=== PATIENT | female | born 1935 | race Caucasian/White ===

== ENCOUNTER 2021-11-16 10:26 | Inpatient (IN) | payer MEDICARE, OTHER ==
[2021-11-16] MEDS ORDERED: Fentanyl 100 MCG/2 ML VIAL ONE ×2 (12:23→14:37)
[2021-11-16 12:47] LABS: #Lymphocytes 0.5 thou/uL (1.20-3.40); #Monocytes 0.4 thou/uL (0.11-0.59); #Neutrophils 11.6 thou/uL (1.40-6.50); %Basophils 0.1 % (0.0-1.0); %Eosinophils 0.3 % (0.0-10.0); %Lymphocytes 4.1 % (21.0-51.0); %Monocytes 3.1 % (0.0-10.0); %Neutrophils 92.4 % (42.0-75.0); Hemoglobin 11.6 g/dL (12.0-16.0); Mean Corpuscular HGB CONC 32.8 g/dL (32.0-36.0); Mean Corpuscular Hemoglobin 30.8 pg (27.0-31.0); Mean Platelet Volume 7.6 fL (7.4-10.4); Platelet Count 159 thou/uL (130-400); RBC Distribution Width 12.1 % (11.5-14.5); Red Blood Cell (RBC) Count 3.74 mill/uL (4.20-5.40); White Blood Cell (WBC) Count 12.5 thou/uL (4.8-10.8)
[2021-11-16 12:57] LABS: INR-International Normal Ratio 1.2; Prothrombin Time 14.8 sec (12.0-14.7)
[2021-11-16 12:58] LABS: PTT 32.1 sec (22.9-36.1)
[2021-11-16 13:16] LABS: ALT (SGPT) 13 U/L (8-55); AST (SGOT) 23 U/L (5-34); Albumin 3.9 g/dL (3.4-4.8); Alkaline Phosphatase 49 U/L (40-110); Anion Gap 16 mmol/L (10-20); BUN (Urea Nitrogen) 15 mg/dL (9.8-20.1); Bilirubin, Total 0.6 mg/dL (0.2-1.2); Calc. Creatinine Clearance 0 mL/min (70-130); Calcium 9.1 mg/dL (7.8-10.44); Carbon Dioxide 21 mmol/L (23-31); Chloride 105 mmol/L (98-107); Estimated GFR 62; Globulin 1.9 g/dL (2.4-3.5); Glucose 118 mg/dL (83-110); Potassium 3.8 mmol/L (3.5-5.1); Protein, Total 5.8 g/dL (5.8-8.1); Sodium 138 mmol/L (136-145)
[2021-11-16] MEDS ORDERED: Metoprolol Tartrate 25 MG TAB ONE (14:36)
[2021-11-16] MEDS ORDERED: Dextrose 5% in Water 1,000 ML IV PRN (14:52)
[2021-11-16] MEDS ORDERED: Ondansetron PF 4 MG/2 ML Vial IVP PRN (14:52)
[2021-11-16] MEDS ORDERED: Dextrose 50% Abboject 50 ML SYRINGE SLOW IVP PRN (14:52)
[2021-11-16] MEDS ORDERED: Morphine 2 MG/ML VIAL SLOW IVP PRN (14:52)
[2021-11-16] MEDS ORDERED: CEFAZOLIN 2 GM in Sodium Chloride 0.9% 100 ML IVPB SCH (15:00)
[2021-11-16] MEDS ORDERED: Ibuprofen 200 MG TAB PO PRN (15:37)
[2021-11-16 16:39] VITALS: BMI 24.4
[2021-11-16] MEDS: Acetaminophen 500 MG TAB PO SCH ×2 (17:14→21:11)
[2021-11-16] MEDS: Gabapentin 100 MG CAP PO SCH ×2 (17:15→21:12)
[2021-11-16] MEDS ORDERED: Famotidine 20 MG TAB PO SCH (21:00)
[2021-11-16] MEDS: Senokot S 8.6-50 MG TAB PO SCH (21:11)
[2021-11-17] MEDS: Acetaminophen 500 MG TAB PO SCH ×2 (03:36→09:19)
[2021-11-17 05:55] LABS: #Lymphocytes 0.9 thou/uL (1.20-3.40); #Monocytes 0.6 thou/uL (0.11-0.59); %Basophils 0.2 % (0.0-1.0); %Eosinophils 0.2 % (0.0-10.0); %Lymphocytes 11.6 % (21.0-51.0); %Monocytes 7.7 % (0.0-10.0); %Neutrophils 80.3 % (42.0-75.0); Hemoglobin 10.5 g/dL (12.0-16.0); Mean Corpuscular HGB CONC 33.2 g/dL (32.0-36.0); Mean Corpuscular Hemoglobin 31.4 pg (27.0-31.0); Mean Corpuscular Volume 94.5 fL (78.0-98.0); Mean Platelet Volume 7.7 fL (7.4-10.4); Platelet Count 154 thou/uL (130-400); RBC Distribution Width 12.1 % (11.5-14.5); Red Blood Cell (RBC) Count 3.34 mill/uL (4.20-5.40); White Blood Cell (WBC) Count 7.4 thou/uL (4.8-10.8)
[2021-11-17 06:28] LABS: Anion Gap 15 mmol/L (10-20); BUN (Urea Nitrogen) 16 mg/dL (9.8-20.1); Calc. Creatinine Clearance 44 mL/min (70-130); Calcium 8.7 mg/dL (7.8-10.44); Carbon Dioxide 21 mmol/L (23-31); Chloride 103 mmol/L (98-107); Estimated GFR 70; Glucose 106 mg/dL (83-110); Phosphorus 4.2 mg/dL (2.3-4.7); Potassium 3.8 mmol/L (3.5-5.1); Sodium 135 mmol/L (136-145)
[2021-11-17] MEDS ORDERED: Potassium Chloride 20 MEQ TAB PO SCH (08:00)
[2021-11-17] MEDS ORDERED: Polyethylene Glycol 3350 17 GM Packet PO SCH (09:00)
[2021-11-17] MEDS ORDERED: Famotidine 20 MG TAB PO SCH (09:00)
[2021-11-17] MEDS: Senokot S 8.6-50 MG TAB PO SCH (09:17)
[2021-11-17] MEDS: Gabapentin 100 MG CAP PO SCH ×2 (09:19→14:19)
[2021-11-17] MEDS ORDERED: traMADol HCl 50 MG TAB PO PRN ×2 (11:45)
[2021-11-17 12:15] VITALS: BP 144/70; TEMP 97.9
== END 2021-11-17 15:30 | disposition short-term general hospital (02) | DRG 536 ==
LOC: ERS 10:26 → SURG B 15:33
PROVIDERS: ADMIT Surgery; ATTEND Surgery
DX: S72.112A Displaced fracture of greater trochanter of left femur, initial encounter for closed fracture (principal); S72.042A Displaced fracture of base of neck of left femur, initial encounter for closed fracture; S72.22XA Displaced subtrochanteric fracture of left femur, initial encounter for closed fracture; Z20.822 Contact with and (suspected) exposure to COVID-19; W18.30XA Fall on same level, unspecified, initial encounter; E78.5 Hyperlipidemia, unspecified; I10 Essential (primary) hypertension; I48.91 Unspecified atrial fibrillation; Y92.009 Unspecified place in unspecified non-institutional (private) residence as the place of occurrence of the external cause; Z79.899 Other long term (current) drug therapy; Z79.01 Long term (current) use of anticoagulants; Z90.49 Acquired absence of other specified parts of digestive tract; Z90.710 Acquired absence of both cervix and uterus; Z98.890 Other specified postprocedural states
CPT/HCPCS: 36415; 70450; 71045; 80048; 80053; 83735; 84100; 85025; 85610; 85730; 93005; 96374; 96376; G0390; J2270; J3010; U0003; U0005